=== PATIENT | female | born 1975 | race Two or more races ===

== ENCOUNTER 2018-08-23 18:15 | Emergency (ER) | payer OTHER ==
[2018-08-23] MEDS ORDERED: KETOROLAC TROMETHAMINE 60 MG/2 ML SDV IM ONE (21:11)
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
[2018-08-23 22:21] VITALS: BP 134/85
== END 2018-08-23 22:21 | disposition home or self-care (01) ==
LOC: ER 18:15
DX: S16.1XXA Strain of muscle, fascia and tendon at neck level, initial encounter (principal); M54.5 Low back pain; V89.2XXA Person injured in unspecified motor-vehicle accident, traffic, initial encounter
CPT/HCPCS: 99283; 96372; J1885